=== PATIENT | male | born 1950 | race Caucasian/White ===

== ENCOUNTER 2017-07-17 17:18 | Emergency (ER) | payer OTHER ==
[~2017-07-17] VITALS: Ht 162.6 cm; Wt 68.9 kg
[2017-07-17 17:43] VITALS: Ht 162.6 cm; Wt 68.9 kg
[2017-07-17 19:36] LABS: BASOPHIL % 0.3 % (0-2); PLATELET COUNT 155 x10^3mcL (130-400); RED CELL DISTRIBUTION WIDTH 12.9 % (11.5-14.5)
[2017-07-17 19:47] LABS: microscopic required? YES; urine erythrocyte 3+ (NEGATIVE)
[2017-07-17 19:51] LABS: ALBUMIN 3.5 g/dL (3.4-5.0); ALKALINE PHOSPHATASE 46 U/L (46-116); ALT/SGPT 38 U/L (16-63); AST/SGOT 25 U/L (15-37); BILIRUBIN TOTAL 0.5 mg/dL (0.20-1.00); CALCIUM 8.3 mg/dL (8.5-10.1); CARBON DIOXIDE 19.8 mmol/L (21-32); CHLORIDE SERUM 99 mmol/L (98-107); CREATININE SERUM 1.2 mg/dL (0.7-1.3); GFR1 > 60 mL/min; POTASSIUM SERUM 3.8 mmol/L (3.5-5.1); SODIUM SERUM 130 mmol/L (136-145); TOTAL PROTEIN, SERUM 6.7 g/dL (6.4-8.2)
[2017-07-17 19:53] LABS: GLUCOSE SERUM 554 mg/dL (74-106)
[2017-07-17 23:46] VITALS: BP 131/75
== END 2017-07-17 23:15 | disposition home or self-care (01) ==
LOC: ED 17:18
PROVIDERS: Specialist
DX: N39.0 Urinary tract infection, site not specified (principal); E11.9 Type 2 diabetes mellitus without complications; I10 Essential (primary) hypertension
CPT/HCPCS: 82962; J0696; J7030

== ENCOUNTER 2018-03-24 18:30 | Inpatient (IN) | payer OTHER ==
[~2018-03-24] VITALS: Ht 162.6 cm; Wt 64.0 kg
[2018-03-24 20:19] LABS: CARBON DIOXIDE 21.7 mmol/L (21-32); CREATININE SERUM 1.9 mg/dL (0.7-1.3)
[2018-03-24 20:23] LABS: BILIRUBIN TOTAL 1.33 mg/dL (0.20-1.00); TOTAL PROTEIN, SERUM 7.5 g/dL (6.4-8.2)
[2018-03-24 20:24] LABS: ALBUMIN 2.8 g/dL (3.4-5.0)
[2018-03-24 20:29] LABS: PLATELET COUNT 108 x10^3mcL (130-400); RED CELL DISTRIBUTION WIDTH 15.2 % (11.5-14.5)
[2018-03-24 20:53] LABS: BAND NEUTROPHIL 7 % (0-10); METAMYELOCTE 3 % (0-2); MONOCYTE 4 % (0-7); SEGMENTED NEUTROPHILS 84 % (37-75)
[2018-03-24 20:59] LABS: burr cell (echinocyte) 1+; rbc morphology (normal/abnorm) ABNORMAL (NORMAL)
[2018-03-24 21:16] LABS: UA SPECIFIC GRAVITY >=1.030 (1.005-1.035); microscopic required? YES; urine erythrocyte 3+ (NEGATIVE)
[2018-03-24] MEDS ORDERED: ASPIRIN FOR CHI81 M1 PO (21:55)
[2018-03-24] MEDS ORDERED: ATORVASTATIN CA40 M1 (21:56)
[2018-03-24] MEDS ORDERED: CARBIDOPA AND L1 OD1 (21:56)
[2018-03-24] MEDS ORDERED: ZYR10 (21:57)
[2018-03-24] MEDS ORDERED: MIRAPEX0.25 MG (21:57)
[2018-03-24] MEDS ORDERED: FERROUS SULFAT325 M2 (21:57)
[2018-03-24] MEDS ORDERED: ZESTRIL20 MG ×2 (21:57→21:58)
[2018-03-24] MEDS ORDERED: PANTOPRAZOLE SO40 M1 (21:58)
[2018-03-24] MEDS ORDERED: ULTRAM50 MG (21:58)
[2018-03-24] MEDS ORDERED: LEVEMIR100 U/M1 (22:01)
[2018-03-24] MEDS ORDERED: METFORMIN HCL1000 MG (22:02)
[2018-03-24] MEDS ORDERED: MYCOC (22:02)
[2018-03-24] MEDS ORDERED: TENDERWRAP UNN1 EACH (22:02)
[2018-03-24] MEDS ORDERED: FISH OIL 1,001000 MG (22:02)
[2018-03-24] MEDS ORDERED: ASSORTED FRUIT G4 GM (22:04)
[2018-03-24] MEDS ORDERED: VIAGRA100 MG (22:04)
[2018-03-25] VITALS (7 sets, daily range): BP systolic 101–170; BP diastolic 62–74; Ht 162.6 cm; Wt 64.0 kg
[2018-03-26 05:36] VITALS: BP 141/75
[2018-03-26 06:43] LABS: PLATELET COUNT 77 x10^3mcL (130-400); RED CELL DISTRIBUTION WIDTH 15.6 % (11.5-14.5)
[2018-03-26 06:55] LABS: CALCIUM 8.4 mg/dL (8.5-10.1); CARBON DIOXIDE 20.4 mmol/L (21-32); CREATININE SERUM 1.3 mg/dL (0.7-1.3)
[2018-03-26 09:40] VITALS: BP 113/57
[2018-03-26 09:46] LABS: BAND NEUTROPHIL 9 % (0-10); BASOPHIL 0 % (0-2); MONOCYTE 4 % (0-7); SEGMENTED NEUTROPHILS 80 % (37-75)
[2018-03-26 09:47] LABS: PLATELET MORPHOLOGY PLATELETS DECREASED; burr cell (echinocyte) 1+; rbc morphology (normal/abnorm) ABNORMAL (NORMAL)
[2018-03-26 13:20] VITALS: BP 106/59
[2018-03-26 16:56] VITALS: BP 127/70
[2018-03-26 21:45] VITALS: BP 136/74
[2018-03-27 04:30] VITALS: BP 145/71
[2018-03-27 06:43] LABS: PLATELET COUNT 70 x10^3mcL (130-400); RED CELL DISTRIBUTION WIDTH 16.2 % (11.5-14.5)
[2018-03-27 06:44] LABS: CALCIUM 8.1 mg/dL (8.5-10.1); CREATININE SERUM 1.3 mg/dL (0.7-1.3); POTASSIUM SERUM 3.5 mmol/L (3.5-5.1)
[2018-03-27 10:03] VITALS: BP 116/64
[2018-03-27 12:22] VITALS: BP 116/61
[2018-03-27 12:22] LABS: ATYPICAL LYMPH 0 %; BAND NEUTROPHIL 4 % (0-10); SEGMENTED NEUTROPHILS 76 % (37-75)
[2018-03-27 12:23] LABS: BASOPHIL 0 % (0-2); MONOCYTE 12 % (0-7); PLATELET MORPHOLOGY PLATELETS DECREASED; rbc morphology (normal/abnorm) ABNORMAL (NORMAL)
[2018-03-27 16:46] VITALS: BP 117/58
[2018-03-27 21:16] VITALS: BP 163/77
[2018-03-28] VITALS (7 sets, daily range): BP systolic 119–143; BP diastolic 61–76
[2018-03-28 06:22] LABS: CALCIUM 8.4 mg/dL (8.5-10.1); CARBON DIOXIDE 22.1 mmol/L (21-32); CHLORIDE SERUM 102 mmol/L (98-107); CREATININE SERUM 1.1 mg/dL (0.7-1.3); GFR1 > 60 mL/min; GLUCOSE SERUM 160 mg/dL (74-106); POTASSIUM SERUM 4.3 mmol/L (3.5-5.1); SODIUM SERUM 133 mmol/L (136-145)
[2018-03-28 06:52] LABS: BASOPHIL % 0 % (0-2); PLATELET COUNT 101 x10^3mcL (130-400); RED CELL DISTRIBUTION WIDTH 16.6 % (11.5-14.5)
[2018-03-29 05:08] VITALS: BP 122/65
[2018-03-29 08:08] VITALS: BP 141/67
[2018-03-29 11:07] LABS: BASOPHIL % 0 % (0-2); PLATELET COUNT 118 x10^3mcL (130-400); RED CELL DISTRIBUTION WIDTH 16.9 % (11.5-14.5)
[2018-03-29 11:17] LABS: CALCIUM 8.5 mg/dL (8.5-10.1); CHLORIDE SERUM 104 mmol/L (98-107); CREATININE SERUM 1.1 mg/dL (0.7-1.3); GFR1 > 60 mL/min; GLUCOSE SERUM 78 mg/dL (74-106); POTASSIUM SERUM 4.3 mmol/L (3.5-5.1); SODIUM SERUM 136 mmol/L (136-145)
[2018-03-29 12:20] VITALS: BP 144/81
== END 2018-03-29 15:53 | disposition home or self-care (01) | DRG 871 ==
LOC: ED 18:30 → DU 23:16
PROVIDERS: Emergency Medicine; ADMIT Internal Medicine
DX: A41.59 Other Gram-negative sepsis (principal); N17.0 Acute kidney failure with tubular necrosis; N39.0 Urinary tract infection, site not specified; E87.2 Acidosis; E87.1 Hypo-osmolality and hyponatremia; E11.22 Type 2 diabetes mellitus with diabetic chronic kidney disease; N18.2 Chronic kidney disease, stage 2 (mild); E11.65 Type 2 diabetes mellitus with hyperglycemia; E86.0 Dehydration; R09.02 Hypoxemia; I10 Essential (primary) hypertension; D69.6 Thrombocytopenia, unspecified; G20 Parkinson's disease; F17.200 Nicotine dependence, unspecified, uncomplicated; Z90.79 Acquired absence of other genital organ(s); Z85.46 Personal history of malignant neoplasm of prostate
CPT/HCPCS: 36600; 82962; 94150; 97116-GP; 97530-GP; 99406; J1815; J1956; J2405; J2550; J3010; J3490; J7030; J7620; Q0092

== ENCOUNTER 2018-03-30 13:49 | Emergency (ER) | payer OTHER ==
[~2018-03-30] VITALS: Ht 162.6 cm; Wt 64.4 kg
[~2018-03-30 13:49] MED LIST: ASPIRIN FOR CHI81 M1 PO; ASSORTED FRUIT G4 GM; ATORVASTATIN CA40 M1; CARBIDOPA AND L1 OD1; FERROUS SULFAT325 M2; FISH OIL 1,001000 MG; LEVEMIR100 U/M1; METFORMIN HCL1000 MG; MIRAPEX0.25 MG; MYCOC; PANTOPRAZOLE SO40 M1; TENDERWRAP UNN1 EACH; ULTRAM50 MG; VIAGRA100 MG; ZESTRIL20 MG; ZYR10
[2018-03-30 14:09] VITALS: Ht 162.6 cm; Wt 64.4 kg
[2018-03-30 17:22] VITALS: BP 132/71
== END 2018-03-30 17:15 | disposition home or self-care (01) ==
LOC: ED 13:49
DX: Z46.6 Encounter for fitting and adjustment of urinary device (principal)